=== PATIENT | male | born 1995 | race African-American/Black ===

== ENCOUNTER 2017-08-21 19:29 | Emergency (ER) | payer SELFPAY ==
[2017-08-21] MEDS ORDERED: predniSONE 20 MG TAB ONE (21:29)
[2017-08-21] MEDS ORDERED: hydrOXYzine 25 MG TAB ONE (21:30)
== END 2017-08-21 22:17 | disposition home or self-care (01) ==
LOC: ERS 19:29
DX: L50.9 Urticaria, unspecified (principal); B34.9 Viral infection, unspecified
CPT/HCPCS: 87081; 87430; 99283; J7506